=== PATIENT | female | born 1970 | race Caucasian/White ===

== ENCOUNTER → 2016-06-02 | Outpatient (CLI) | payer OTHER | END | disposition home or self-care (01) | LOC: CFH 10:57 | DX: Z12.31 Encounter for screening mammogram for malignant neoplasm of breast (principal) | CPT/HCPCS: 77063; G0202 ==

== ENCOUNTER → 2017-12-15 | Outpatient (CLI) | payer OTHER ==
[~2017-12-15] MED LIST: GLUCOSAMINE LIQUID PO; MULT-516 PO; VITA1TAB19 PO
[2017-12-15 15:48] LABS: MICROSCOPIC NOT IND
[2017-12-15 15:50] LABS: CULTURE INDICATED? NO
[2017-12-15 16:14] LABS: BASOPHILS # (AUTO) 0.03 x10^3/uL (0-0.1); BASOPHILS % (AUTO) 1 % (0-1); EOSINOPHILS # (AUTO) 0.14 x10^3/uL (0-0.4); EOSINOPHILS % (AUTO) 2 % (1-7); LYMPHOCYTES # (AUTO) 1.57 x10^3/uL (1-3.4); LYMPHOCYTES % (AUTO) 26 % (22-44); MD NO; MEAN CORPUSCULAR HEMOGLOBIN 33.3 pg (27.0-34.8); MEAN CORPUSCULAR HGB CONC 34.3 g/dL (32.4-35.8); MEAN CORPUSCULAR VOLUME 97.3 fL (80-100); MEAN PLATELET VOLUME 8.1 fL (7.4-10.4); MONOCYTES # (AUTO) 0.41 x10^3/uL (0.2-0.8); MONOCYTES % (AUTO) 7 % (2-9); NEUTROPHILS # (AUTO) 3.99 x10^3/uL (1.8-6.8); NEUTROPHILS % (AUTO) 65 % (42-75); PLATELET COUNT 319 x10^3/uL (130-400); RED BLOOD COUNT 3.48 x10^6/uL (3.82-5.3); RED CELL DISTRIBUTION WIDTH 12.1 % (9.6-15.2)
== END | disposition home or self-care (01) ==
LOC: STAR 14:56
PROVIDERS: ATTEND Obstetrics & Gynecology Maternal & Fetal Medicine
DX: Z01.818 Encounter for other preprocedural examination (principal); D25.9 Leiomyoma of uterus, unspecified; R10.2 Pelvic and perineal pain
CPT/HCPCS: 36415; 81003; 84703; 85025

== ENCOUNTER 2017-12-23 05:36 | Inpatient (IN) | payer OTHER ==
[~2017-12-23] VITALS: Ht 172.7 cm; Wt 57.4 kg
[2017-12-23] MEDS ORDERED: LACTATED RINGERS 1,000 ML IV SCH (06:03)
[2017-12-23 06:04] VITALS: BP 99/65
[2017-12-23] MEDS ORDERED: MIDAZOLAM 1 MG/ML, 2ML ONE (07:07)
[2017-12-23] MEDS ORDERED: PROPOFOL 10 MG/ML, 20ML ONE (07:08)
[2017-12-23] MEDS ORDERED: LIDOCAINE-MPF 2% ,5ML ONE (07:08)
[2017-12-23] MEDS ORDERED: FENTANYL PF 250 MCG/5ML ONE (07:08)
[2017-12-23] MEDS ORDERED: ONDANSETRON 2MG/ML, 2ML ONE ×2 (07:10)
[2017-12-23] MEDS ORDERED: DEXAMETHASONE 4 MG/ML, 1ML ONE ×2 (07:10)
[2017-12-23] MEDS ORDERED: WATER-INJECTION,STERILE 10 ML IV ONE (07:10)
[2017-12-23] MEDS ORDERED: CEFAZOLIN 1,000 MG ONE ×2 (07:10)
[2017-12-23] MEDS ORDERED: EPINEPHRINE 1 MG/ML, 1ML ONE (07:25)
[2017-12-23] MEDS ORDERED: cloniDINE/PF 100 MCG/ML, 10 ML ONE (07:27)
[2017-12-23] MEDS ORDERED: DEXMEDETOMIDINE 200 MCG/2 ML ONE (07:28)
[2017-12-23] MEDS ORDERED: SCOPOLAMINE PATCH, 1.5MG PATCH.TD72 TD ONE (07:30)
[2017-12-23] MEDS ORDERED: PHENYLEPHRINE 10 MG/ML ONE (07:30)
[2017-12-23] MEDS ORDERED: GABAPENTIN 300 MG CAPSULE PO ONE (07:30)
[2017-12-23] MEDS ORDERED: ACETAMINOPHEN 500 MG TABLET PO ONE (07:30)
[2017-12-23] MEDS ORDERED: ROCURONIUM 10 MG/ML,10ML ONE (07:38)
[2017-12-23] MEDS ORDERED: NEOSTIGMINE 1 MG/ML, 10ML ONE (08:46)
[2017-12-23] MEDS ORDERED: GLYCOPYRROLATE 0.4 MG/2 ML, 2ML ONE (08:46)
[2017-12-23] MEDS ORDERED: MEPERIDINE/PF 50 MG/ML ONE (09:03)
[2017-12-23] MEDS ORDERED: FENTANYL PF 100 MCG/2ML ONE (09:03)
[2017-12-23] MEDS ORDERED: OXYcodone 5 MG/5 ML ORAL.SOL UDC ONE (09:04)
[2017-12-23] MEDS: FENTANYL PF 100 MCG/2ML IV PRN ×4 (09:05→09:30)
[2017-12-23] MEDS: MEPERIDINE/PF 25MG/0.5ML IVPush PRN ×2 (09:20→09:45)
[2017-12-23] MEDS ORDERED: OXYcodone 5 MG/5 ML ORAL.SOL UDC PO PRN (09:30)
[2017-12-23] MEDS ORDERED: CEFAZOLIN PMX 1GM/50ML 50 ML IVPB SCH (09:30)
[2017-12-23] MEDS ORDERED: PROMETHAZINE 25 MG/ML, 1ML IV PRN (09:30)
[2017-12-23] MEDS ORDERED: HYDROmorphone 1 MG/ML, 1ML IV PRN (09:30)
[2017-12-23] MEDS ORDERED: HALOPERIDOL 5 MG/ML IV PRN (09:30)
[2017-12-23] MEDS ORDERED: HYDROmorphone 2 MG/ML, 1ML ONE (09:52)
[2017-12-23 13:35] VITALS: BP 96/53
[2017-12-23] MEDS: morphine SULFATE 10 MG/ML, 1ML IVPush PRN ×4 (15:06→23:50)
[2017-12-23 18:45] VITALS: BP 91/52
[2017-12-23] MEDS: LACTATED RINGERS 1,000 ML IV SCH (23:30)
[2017-12-24] MEDS ORDERED: CEFAZOLIN PMX 1GM/50ML 50 ML IVPB SCH
[2017-12-24 00:59] VITALS: BP 86/44
[2017-12-24 01:04] VITALS: BP 93/45
[2017-12-24] MEDS: OXYcodone 5 MG/5 ML ORAL.SOL UDC PO PRN ×5 (01:54→20:05)
[2017-12-24 04:29] VITALS: BP 94/47
[2017-12-24] MEDS: LACTATED RINGERS 1,000 ML IV SCH ×3 (06:36→22:52)
[2017-12-24 08:11] VITALS: BP 101/54
[2017-12-24 11:55] LABS: BASOPHILS # (AUTO) 0.09 x10^3/uL (0-0.1); BASOPHILS % (AUTO) 1 % (0-1); EOSINOPHILS # (AUTO) 0.03 x10^3/uL (0-0.4); EOSINOPHILS % (AUTO) 0 % (1-7); LYMPHOCYTES # (AUTO) 1.58 x10^3/uL (1-3.4); LYMPHOCYTES % (AUTO) 16 % (22-44); MD NO; MEAN CORPUSCULAR HEMOGLOBIN 32.4 pg (27.0-34.8); MEAN CORPUSCULAR HGB CONC 33.5 g/dL (32.4-35.8); MEAN CORPUSCULAR VOLUME 96.6 fL (80-100); MEAN PLATELET VOLUME 7.5 fL (7.4-10.4); MONOCYTES # (AUTO) 0.48 x10^3/uL (0.2-0.8); MONOCYTES % (AUTO) 5 % (2-9); NEUTROPHILS # (AUTO) 7.78 x10^3/uL (1.8-6.8); NEUTROPHILS % (AUTO) 78 % (42-75); PLATELET COUNT 215 x10^3/uL (130-400); RED BLOOD COUNT 3.16 x10^6/uL (3.82-5.3); RED CELL DISTRIBUTION WIDTH 12.5 % (9.6-15.2)
[2017-12-24 12:05] LABS: ALANINE AMINOTRANSFERASE 51 U/L (12-78); ALBUMIN 2.9 g/dL (3.4-5.0); ANION GAP 8 mmol/L (5-15); CALCIUM 8.4 mg/dL (8.5-10.1); CHLORIDE 105 mmol/L (98-107); CREATININE 0.51 mg/dL (0.55-1.02)
[2017-12-24 12:07] LABS: ALKALINE PHOSPHATASE 66 U/L (45-117); BILIRUBIN,TOTAL 0.9 mg/dL (0.2-1.0); TOTAL PROTEIN 6.2 g/dL (6.4-8.2)
[2017-12-24] MEDS: KETOROLAC 30 MG/1 ML IVPush SCH ×2 (12:32→18:02)
[2017-12-24 14:00] VITALS: BP 100/57
[2017-12-24] MEDS ORDERED: OMNIPAQUE 350 MG/ML, 100ML BOTTLE ONE (14:36)
[2017-12-24 20:00] VITALS: BP 106/64
[2017-12-24] MEDS: ONDANSETRON 2MG/ML, 2ML IVPush PRN (21:12)
[2017-12-24] MEDS: morphine SULFATE 10 MG/ML, 1ML IVPush PRN (21:22)
[2017-12-24] MEDS: OXYcodone/APAP 5/325MG TABLET PO PRN (23:16)
[2017-12-24] MEDS: DOCUSATE 100 MG CAPSULE PO SCH (23:18)
[2017-12-24] MEDS ORDERED: MORPHINE SULFATE 4 MG/ML, 1ML IVPush PRN (23:30)
[2017-12-25] MEDS: KETOROLAC 30 MG/1 ML IVPush SCH ×4 (00:28→17:49)
[2017-12-25 01:06] VITALS: BP 111/64
[2017-12-25] MEDS: OXYcodone/APAP 5/325MG TABLET PO PRN ×5 (03:14→20:53)
[2017-12-25] MEDS: ONDANSETRON 2MG/ML, 2ML IVPush PRN ×2 (06:22→23:28)
[2017-12-25] MEDS: LACTATED RINGERS 1,000 ML IV SCH ×3 (06:23→23:04)
[2017-12-25] MEDS: DOCUSATE 100 MG CAPSULE PO SCH ×2 (08:09→20:40)
[2017-12-25 09:33] VITALS: BP 102/65
[2017-12-25 15:14] VITALS: BP 110/65
[2017-12-25] MEDS ORDERED: GOLYTELY 4,000ML ORAL.SOL PO ONE (18:30)
[2017-12-25 19:24] VITALS: BP 106/66
[2017-12-26 00:10] VITALS: BP 110/70
[2017-12-26] MEDS: KETOROLAC 30 MG/1 ML IVPush SCH ×4 (00:34→18:30)
[2017-12-26] MEDS: ONDANSETRON 2MG/ML, 2ML IVPush PRN (05:31)
[2017-12-26 05:43] LABS: INTERNATIONAL NORMALIZED RATIO 1.2 (0.93-1.1); PROTHROMBIN TIME 12.6 Seconds (9.6-11.5)
[2017-12-26] MEDS: LACTATED RINGERS 1,000 ML IV SCH ×3 (06:32→23:00)
[2017-12-26 07:05] VITALS: BP 111/69
[2017-12-26] MEDS: DOCUSATE 100 MG CAPSULE PO SCH ×2 (09:00→21:00)
[2017-12-26] MEDS ORDERED: MAGNESIUM CITRATE 300ML ORAL SOL PO ONE (10:00)
[2017-12-26] MEDS ORDERED: MAGNESIUM HYDROXIDE 8%, 30ML UDC PO PRN (10:00)
[2017-12-26 13:43] VITALS: BP 122/75
[2017-12-26] MEDS ORDERED: SCOPOLAMINE PATCH, 1.5MG PATCH.TD72 TD ONE (13:46)
[2017-12-26] MEDS: SCOPOLAMINE PATCH, 1.5MG PATCH.TD72 TD SCH (13:50)
[2017-12-26] MEDS ORDERED: FENTANYL PF 250 MCG/5ML ONE (18:25)
[2017-12-26] MEDS ORDERED: MIDAZOLAM 1 MG/ML, 2ML ONE (18:25)
[2017-12-26] MEDS ORDERED: PROPOFOL 10 MG/ML, 20ML ONE (18:38)
[2017-12-26] MEDS ORDERED: CEFAZOLIN 1,000 MG ONE (18:38)
[2017-12-26] MEDS ORDERED: DEXAMETHASONE 4 MG/ML, 1ML ONE (18:38)
[2017-12-26] MEDS ORDERED: SUCCINYLCHOLINE 20 MG/ML, 10ML ONE (18:38)
[2017-12-26] MEDS ORDERED: ROCURONIUM 10 MG/ML,10ML ONE (18:38)
[2017-12-26] MEDS ORDERED: ONDANSETRON 2MG/ML, 2ML ONE (18:38)
[2017-12-26] MEDS ORDERED: ONDANSETRON ODT 8 MG PO PRN (19:30)
[2017-12-26] MEDS ORDERED: PROMETHAZINE 12.5 MG SUPP PR PRN (19:30)
[2017-12-26] MEDS ORDERED: hydrALAzine 20 MG/ML, 1ML IV PRN (19:30)
[2017-12-26] MEDS ORDERED: FENTANYL PF 100 MCG/2ML IV PRN (19:30)
[2017-12-26] MEDS ORDERED: ONDANSETRON 2MG/ML, 2ML IV PRN (19:30)
[2017-12-26] MEDS ORDERED: LABETALOL 5MG/ML, 20ML IV PRN (19:30)
[2017-12-26] MEDS ORDERED: HYDROmorphone 1 MG/ML, 1ML IV PRN (19:30)
[2017-12-26] MEDS ORDERED: OXYcodone 5 MG/5 ML ORAL.SOL UDC PO PRN (19:30)
[2017-12-26] MEDS ORDERED: BUPIVACAINE/PF-EPI 0.25% 1:200K INFIL ONE (19:35)
[2017-12-26] MEDS: METOCLOPRAMIDE 5 MG/ML, 2ML IVPush SCH (20:00)
[2017-12-26] MEDS ORDERED: BUPIVACAINE/PF-EPI 0.25% 1:200K ONE (22:58)
[2017-12-26] MEDS ORDERED: MEPERIDINE/PF 50 MG/ML ONE (22:59)
[2017-12-26] MEDS ORDERED: HYDROmorphone 2 MG/ML, 1ML ONE (22:59)
[2017-12-26] MEDS ORDERED: MEPERIDINE/PF 25MG/0.5ML IVPush PRN (23:30)
[2017-12-27] MEDS: KETOROLAC 30 MG/1 ML IVPush SCH ×4 (00:30→18:39)
[2017-12-27 00:31] VITALS: BP 123/77
[2017-12-27] MEDS: D5%-0.45NACL+KCL 20MEQ 1,000 ML IV SCH ×4 (01:19→23:35)
[2017-12-27] MEDS: METOCLOPRAMIDE 5 MG/ML, 2ML IVPush SCH ×4 (02:24→20:37)
[2017-12-27] MEDS: LACTATED RINGERS 1,000 ML IV SCH ×4 (02:26→21:31)
[2017-12-27 03:24] VITALS: BP 123/77
[2017-12-27 04:43] LABS: BASOPHILS # (AUTO) 0.01 x10^3/uL (0-0.1); BASOPHILS % (AUTO) 0 % (0-1); EOSINOPHILS % (AUTO) 0 % (1-7); LYMPHOCYTES # (AUTO) 0.17 x10^3/uL (1-3.4); LYMPHOCYTES % (AUTO) 4 % (22-44); MD NO; MEAN CORPUSCULAR HGB CONC 34.4 g/dL (32.4-35.8); MEAN CORPUSCULAR VOLUME 96.1 fL (80-100); MONOCYTES % (AUTO) 2 % (2-9); NEUTROPHILS # (AUTO) 3.94 x10^3/uL (1.8-6.8); NEUTROPHILS % (AUTO) 93 % (42-75); PLATELET COUNT 228 x10^3/uL (130-400); RED BLOOD COUNT 2.58 x10^6/uL (3.82-5.3); RED CELL DISTRIBUTION WIDTH 12.9 % (9.6-15.2)
[2017-12-27 04:52] LABS: ANION GAP 6 mmol/L (5-15); CALCIUM 7.2 mg/dL (8.5-10.1); CHLORIDE 101 mmol/L (98-107)
[2017-12-27 04:53] LABS: CREATININE 0.48 mg/dL (0.55-1.02)
[2017-12-27 07:16] VITALS: BP 121/73
[2017-12-27] MEDS: DOCUSATE 100 MG CAPSULE PO SCH ×2 (09:00→20:37)
[2017-12-27 13:08] VITALS: BP 101/60
[2017-12-27] MEDS ORDERED: SODIUM CHLORIDE 0.9%, 500ML IVBOLUS ONE (13:30)
[2017-12-27 15:05] LABS: CULTURE INDICATED? YES; MICROSCOPIC INDICATED
[2017-12-27] MEDS ORDERED: SODIUM CHLORIDE 0.9% 1,000ML IVBOLUS ONE (19:00)
[2017-12-27 19:13] VITALS: BP 104/65
[2017-12-28] VITALS (11 sets, daily range): BP systolic 97–118; BP diastolic 54–69
[2017-12-28] MEDS: KETOROLAC 30 MG/1 ML IVPush SCH ×4 (00:13→18:02)
[2017-12-28] MEDS: METOCLOPRAMIDE 5 MG/ML, 2ML IVPush SCH ×4 (02:04→21:04)
[2017-12-28 05:46] LABS: BASOPHILS % (AUTO) 0 % (0-1); EOSINOPHILS # (AUTO) 0.06 x10^3/uL (0-0.4); EOSINOPHILS % (AUTO) 1 % (1-7); LYMPHOCYTES # (AUTO) 0.48 x10^3/uL (1-3.4); LYMPHOCYTES % (AUTO) 11 % (22-44); MD NO; MEAN CORPUSCULAR HEMOGLOBIN 31.9 pg (27.0-34.8); MEAN CORPUSCULAR HGB CONC 33.1 g/dL (32.4-35.8); MEAN CORPUSCULAR VOLUME 96.2 fL (80-100); MEAN PLATELET VOLUME 7.1 fL (7.4-10.4); MONOCYTES % (AUTO) 5 % (2-9); NEUTROPHILS # (AUTO) 3.58 x10^3/uL (1.8-6.8); NEUTROPHILS % (AUTO) 83 % (42-75); PLATELET COUNT 240 x10^3/uL (130-400); RED BLOOD COUNT 2.12 x10^6/uL (3.82-5.3); RED CELL DISTRIBUTION WIDTH 13.3 % (9.6-15.2)
[2017-12-28 05:50] LABS: ALBUMIN 1.5 g/dL (3.4-5.0); ANION GAP 5 mmol/L (5-15); CALCIUM 7.1 mg/dL (8.5-10.1); CHLORIDE 105 mmol/L (98-107)
[2017-12-28 05:56] LABS: ALANINE AMINOTRANSFERASE 42 U/L (12-78); ALKALINE PHOSPHATASE 59 U/L (45-117); BILIRUBIN,TOTAL 0.6 mg/dL (0.2-1.0); CREATININE 0.48 mg/dL (0.55-1.02); TOTAL PROTEIN 4.9 g/dL (6.4-8.2)
[2017-12-28] MEDS: DOCUSATE 100 MG CAPSULE PO SCH ×2 (07:36→19:23)
[2017-12-28] MEDS: D5%-0.45NACL+KCL 20MEQ 1,000 ML IV SCH ×3 (07:38→23:39)
[2017-12-28] MEDS: LACTATED RINGERS 1,000 ML IV SCH ×2 (13:11→20:35)
[2017-12-28] MEDS: ONDANSETRON 2MG/ML, 2ML IVPush PRN (15:46)
[2017-12-29] MEDS: KETOROLAC 30 MG/1 ML IVPush SCH ×2 (01:11→06:00)
[2017-12-29] MEDS: METOCLOPRAMIDE 5 MG/ML, 2ML IVPush SCH ×2 (01:51→07:47)
[2017-12-29 05:19] LABS: BASOPHILS # (AUTO) 0.01 x10^3/uL (0-0.1); BASOPHILS % (AUTO) 0 % (0-1); EOSINOPHILS # (AUTO) 0.14 x10^3/uL (0-0.4); EOSINOPHILS % (AUTO) 4 % (1-7); LYMPHOCYTES # (AUTO) 0.66 x10^3/uL (1-3.4); LYMPHOCYTES % (AUTO) 18 % (22-44); MD NO; MEAN CORPUSCULAR HEMOGLOBIN 31.6 pg (27.0-34.8); MEAN CORPUSCULAR HGB CONC 34.6 g/dL (32.4-35.8); MEAN CORPUSCULAR VOLUME 91.5 fL (80-100); MEAN PLATELET VOLUME 6.8 fL (7.4-10.4); MONOCYTES # (AUTO) 0.38 x10^3/uL (0.2-0.8); MONOCYTES % (AUTO) 11 % (2-9); NEUTROPHILS % (AUTO) 67 % (42-75); PLATELET COUNT 237 x10^3/uL (130-400); RED BLOOD COUNT 2.61 x10^6/uL (3.82-5.3); RED CELL DISTRIBUTION WIDTH 17.6 % (9.6-15.2)
[2017-12-29] MEDS: LACTATED RINGERS 1,000 ML IV SCH ×3 (06:00→22:00)
[2017-12-29 07:12] VITALS: BP 105/57
[2017-12-29] MEDS: D5%-0.45NACL+KCL 20MEQ 1,000 ML IV SCH ×2 (07:45→16:51)
[2017-12-29] MEDS: DOCUSATE 100 MG CAPSULE PO SCH (07:48)
[2017-12-29 12:22] VITALS: BP 117/74
[2017-12-29] MEDS: KETOROLAC 30 MG/1 ML IVPush PRN ×2 (12:35→18:44)
[2017-12-29] MEDS: SCOPOLAMINE PATCH, 1.5MG PATCH.TD72 TD SCH (14:33)
[2017-12-29 18:52] VITALS: BP 112/73
[2017-12-30] MEDS: KETOROLAC 30 MG/1 ML IVPush PRN ×4 (00:32→22:54)
[2017-12-30] MEDS: D5%-0.45NACL+KCL 20MEQ 1,000 ML IV SCH ×3 (00:32→17:21)
[2017-12-30 00:42] VITALS: BP 122/64
[2017-12-30] MEDS: LACTATED RINGERS 1,000 ML IV SCH ×4 (05:21→23:16)
[2017-12-30 05:57] LABS: BASOPHILS # (AUTO) 0.01 x10^3/uL (0-0.1); BASOPHILS % (AUTO) 0 % (0-1); EOSINOPHILS # (AUTO) 0.15 x10^3/uL (0-0.4); EOSINOPHILS % (AUTO) 4 % (1-7); LYMPHOCYTES # (AUTO) 0.71 x10^3/uL (1-3.4); LYMPHOCYTES % (AUTO) 18 % (22-44); MD NO; MEAN CORPUSCULAR HEMOGLOBIN 30.6 pg (27.0-34.8); MEAN CORPUSCULAR HGB CONC 33.6 g/dL (32.4-35.8); MEAN PLATELET VOLUME 6.9 fL (7.4-10.4); MONOCYTES # (AUTO) 0.36 x10^3/uL (0.2-0.8); MONOCYTES % (AUTO) 9 % (2-9); NEUTROPHILS # (AUTO) 2.74 x10^3/uL (1.8-6.8); NEUTROPHILS % (AUTO) 69 % (42-75); PLATELET COUNT 248 x10^3/uL (130-400); RED BLOOD COUNT 2.69 x10^6/uL (3.82-5.3); RED CELL DISTRIBUTION WIDTH 16.8 % (9.6-15.2)
[2017-12-30 06:01] LABS: ANION GAP 2 mmol/L (5-15); CALCIUM 7.7 mg/dL (8.5-10.1); CHLORIDE 106 mmol/L (98-107); CREATININE 0.41 mg/dL (0.55-1.02)
[2017-12-30 07:14] VITALS: BP 120/74
[2017-12-30 13:30] VITALS: BP 119/81
[2017-12-30 19:50] VITALS: BP 122/74
[2017-12-31 00:37] VITALS: BP 126/89
[2017-12-31] MEDS: D5%-0.45NACL+KCL 20MEQ 1,000 ML IV SCH ×3 (00:47→16:56)
[2017-12-31 07:48] VITALS: BP 125/72
[2017-12-31] MEDS: KETOROLAC 30 MG/1 ML IVPush PRN ×2 (10:37→21:15)
[2017-12-31] MEDS: ONDANSETRON 2MG/ML, 2ML IVPush PRN (14:41)
[2017-12-31 15:32] VITALS: BP_SYST 106; BP_SYST 110; BP_DIAS 67
[2017-12-31 19:55] VITALS: BP 122/78
[2017-12-31] MEDS: LACTATED RINGERS 1,000 ML IV SCH (20:49)
[2017-12-31] MEDS: POLYTRIM OPHTH 10ML RIGHTEYE SCH (20:49)
[2018-01-01 01:19] VITALS: BP 119/74
[2018-01-01] MEDS: POLYTRIM OPHTH 10ML RIGHTEYE SCH ×4 (02:56→21:16)
[2018-01-01] MEDS: D5%-0.45NACL+KCL 20MEQ 1,000 ML IV SCH ×2 (04:38→12:28)
[2018-01-01 06:06] LABS: ALBUMIN 1.6 g/dL (3.4-5.0); ANION GAP 6 mmol/L (5-15); CALCIUM 7.5 mg/dL (8.5-10.1); CHLORIDE 106 mmol/L (98-107)
[2018-01-01 06:09] LABS: ALANINE AMINOTRANSFERASE 42 U/L (12-78); ALKALINE PHOSPHATASE 133 U/L (45-117); CREATININE 0.36 mg/dL (0.55-1.02); MEAN CORPUSCULAR HEMOGLOBIN 30.9 pg (27.0-34.8); MEAN CORPUSCULAR HGB CONC 34.1 g/dL (32.4-35.8); MEAN CORPUSCULAR VOLUME 90.7 fL (80-100); MEAN PLATELET VOLUME 7.2 fL (7.4-10.4); PLATELET COUNT 299 x10^3/uL (130-400); RED BLOOD COUNT 2.51 x10^6/uL (3.82-5.3); RED CELL DISTRIBUTION WIDTH 16.6 % (9.6-15.2)
[2018-01-01 06:27] LABS: BASOPHILS # (AUTO) 0.03 x10^3/uL (0-0.1); BASOPHILS % (AUTO) 0 % (0-1); EOSINOPHILS # (AUTO) 0.07 x10^3/uL (0-0.4); EOSINOPHILS % (AUTO) 1 % (1-7); LYMPHOCYTES # (AUTO) 0.71 x10^3/uL (1-3.4); LYMPHOCYTES % (AUTO) 10 % (22-44); MD SCAN; MONOCYTES # (AUTO) 0.56 x10^3/uL (0.2-0.8); MONOCYTES % (AUTO) 8 % (2-9); NEUTROPHILS # (AUTO) 5.64 x10^3/uL (1.8-6.8); NEUTROPHILS % (AUTO) 81 % (42-75)
[2018-01-01 07:12] VITALS: BP 118/68
[2018-01-01] MEDS: OXYcodone 5 MG/5 ML ORAL.SOL UDC PO PRN ×2 (12:12→21:36)
[2018-01-01 12:16] VITALS: BP 103/64
[2018-01-01] MEDS: ONDANSETRON 2MG/ML, 2ML IVPush PRN ×2 (12:47→23:36)
[2018-01-01] MEDS: SCOPOLAMINE PATCH, 1.5MG PATCH.TD72 TD SCH (13:57)
[2018-01-01] MEDS ORDERED: PVN PER PHARMACY MC PRN (16:00)
[2018-01-01] MEDS ORDERED: D5%-0.45NACL+KCL 20MEQ 1,000 ML IV SCH (16:30)
[2018-01-01] MEDS ORDERED: D5%-0.45% NACL 1,000 ML IV SCH (16:31)
[2018-01-01] MEDS ORDERED: [UNRECOGNIZED DRUG - OTHER] IV SCH (17:00)
[2018-01-01] MEDS ORDERED: SMOF TPN IV SCH (17:00)
[2018-01-01] MEDS ORDERED: FAT EMUL IV SCH (17:00)
[2018-01-01] MEDS ORDERED: DEXTROSE 70% IV SCH (17:00)
[2018-01-01] MEDS ORDERED: DEXTROSE 10% 500 ML IV PRN (17:00)
[2018-01-01] MEDS ORDERED: DEXTROSE 50%, 50ML SYRINGE IVPush PRN (17:00)
[2018-01-01] MEDS ORDERED: AMINO ACID 10% IV SCH (17:00)
[2018-01-01 19:02] VITALS: BP 119/74
[2018-01-01] MEDS: FILTER, DISP 1.2 MICRON FOR TPN/PVN IV PRN (20:42)
[2018-01-01] MEDS: LACTATED RINGERS 1,000 ML IV SCH (21:20)
[2018-01-01] MEDS: INSULIN REGULAR LOW DOSE Q6H X 48HRS SQ-INSULIN SCH (21:20)
[2018-01-02 01:17] VITALS: BP 109/68
[2018-01-02] MEDS: INSULIN REGULAR LOW DOSE Q6H X 48HRS SQ-INSULIN SCH ×4 (02:58→22:07)
[2018-01-02] MEDS: POLYTRIM OPHTH 10ML RIGHTEYE SCH ×4 (02:58→20:00)
[2018-01-02 05:41] LABS: MEAN CORPUSCULAR HEMOGLOBIN 30.6 pg (27.0-34.8); MEAN CORPUSCULAR VOLUME 89.8 fL (80-100); MEAN PLATELET VOLUME 7.4 fL (7.4-10.4); PLATELET COUNT 313 x10^3/uL (130-400); RED BLOOD COUNT 2.52 x10^6/uL (3.82-5.3); RED CELL DISTRIBUTION WIDTH 16.5 % (9.6-15.2)
[2018-01-02 05:49] LABS: CHLORIDE 104 mmol/L (98-107)
[2018-01-02 06:03] LABS: ALANINE AMINOTRANSFERASE 40 U/L (12-78); ALBUMIN 1.6 g/dL (3.4-5.0); ALKALINE PHOSPHATASE 115 U/L (45-117); ANION GAP 7 mmol/L (5-15); BILIRUBIN,TOTAL 0.9 mg/dL (0.2-1.0); CALCIUM 7.5 mg/dL (8.5-10.1); CREATININE 0.34 mg/dL (0.55-1.02); PREALBUMIN 3.7 mg/dL (20.0-40.0); TRIGLYCERIDES 115 mg/dL (50-200)
[2018-01-02 06:08] LABS: MD YES
[2018-01-02 06:11] LABS: ANISOCYTOSIS 1+; BAND#(MANUAL) 1.14 x10^3/uL; BANDS%(MANUAL) 15 % (0-7); EOS#(MANUAL) 0.08 x10^3/uL (0.0-0.4); EOS% (MANUAL) 1 % (1-7); LYMPH#(MANUAL) 1.06 x10^3/uL (1-3.4); LYMPHS% (MANUAL) 14 % (22-44); MONOS#(MANUAL) 0.23 x10^3/uL (0.3-2.7); MONOS% (MANUAL) 3 % (2-9); POLYCHROMASIA 1+; REACTIVE LYMPHS # (MANUAL) 0.15 x10^3/uL (0-0); REACTIVE LYMPHS % (MANUAL) 2 % (0-0); SEG#(MANUAL) 4.94 x10^3/uL (1.8-6.8); SEGS% (MANUAL) 65 % (42-75)
[2018-01-02 06:12] LABS: <PLATELET ESTIMATE> ADEQUATE; <PLT MORPHOLOGY> NORMAL PLT MORPH; TOXIC GRAN 1+
[2018-01-02 06:50] VITALS: BP 107/69
[2018-01-02] MEDS: OXYcodone 5 MG/5 ML ORAL.SOL UDC PO PRN ×2 (09:30→22:14)
[2018-01-02] MEDS ORDERED: TPN PER PHARMACY MC PRN (10:41)
[2018-01-02 12:07] VITALS: BP 110/59
[2018-01-02] MEDS: D5%-0.45% NACL 1,000 ML IV SCH (15:14)
[2018-01-02] MEDS ORDERED: SMOF TPN IV SCH (17:00)
[2018-01-02] MEDS ORDERED: AMINO ACID 10% IV SCH (17:00)
[2018-01-02] MEDS ORDERED: DEXTROSE 70% IV SCH (17:00)
[2018-01-02] MEDS ORDERED: [UNRECOGNIZED DRUG - OTHER] IV SCH (17:00)
[2018-01-02] MEDS ORDERED: FAT EMUL IV SCH (17:00)
[2018-01-02] MEDS: ONDANSETRON 2MG/ML, 2ML IVPush PRN (18:05)
[2018-01-02 19:41] VITALS: BP 100/63
[2018-01-02] MEDS: FILTER, DISP 1.2 MICRON FOR TPN/PVN IV PRN (19:58)
[2018-01-02] MEDS: LACTATED RINGERS 1,000 ML IV SCH (21:41)
[2018-01-03 01:32] VITALS: BP 111/67
[2018-01-03] MEDS: POLYTRIM OPHTH 10ML RIGHTEYE SCH ×4 (02:51→19:58)
[2018-01-03] MEDS: INSULIN REGULAR LOW DOSE Q6H X 48HRS SQ-INSULIN SCH ×3 (02:59→15:00)
[2018-01-03] MEDS: LACTATED RINGERS 1,000 ML IV SCH ×3 (05:11→16:25)
[2018-01-03] MEDS: OXYcodone 5 MG/5 ML ORAL.SOL UDC PO PRN (05:11)
[2018-01-03 05:25] LABS: ALANINE AMINOTRANSFERASE 52 U/L (12-78); ALBUMIN 1.6 g/dL (3.4-5.0); ANION GAP 10 mmol/L (5-15); CALCIUM 7.4 mg/dL (8.5-10.1); CHLORIDE 104 mmol/L (98-107); CREATININE 0.34 mg/dL (0.55-1.02)
[2018-01-03 05:27] LABS: ALKALINE PHOSPHATASE 137 U/L (45-117); BILIRUBIN,TOTAL 0.7 mg/dL (0.2-1.0); TOTAL PROTEIN 5.3 g/dL (6.4-8.2)
[2018-01-03 07:17] VITALS: BP 97/59
[2018-01-03 09:08] LABS: MEAN CORPUSCULAR HEMOGLOBIN 30.3 pg (27.0-34.8); MEAN CORPUSCULAR HGB CONC 33.7 g/dL (32.4-35.8); MEAN PLATELET VOLUME 7.2 fL (7.4-10.4); PLATELET COUNT 437 x10^3/uL (130-400); RED BLOOD COUNT 2.83 x10^6/uL (3.82-5.3); RED CELL DISTRIBUTION WIDTH 16.5 % (9.6-15.2)
[2018-01-03 10:30] LABS: MD YES
[2018-01-03 10:32] LABS: EOS#(MANUAL) 0.23 x10^3/uL (0.0-0.4); EOS% (MANUAL) 2 % (1-7); LYMPHS% (MANUAL) 15 % (22-44); MONOS#(MANUAL) 0.45 x10^3/uL (0.3-2.7); MONOS% (MANUAL) 4 % (2-9)
[2018-01-03 10:33] LABS: BAND#(MANUAL) 0.68 x10^3/uL; BANDS%(MANUAL) 6 % (0-7); SEG#(MANUAL) 8.25 x10^3/uL (1.8-6.8); SEGS% (MANUAL) 73 % (42-75)
[2018-01-03 10:34] LABS: <PLATELET ESTIMATE> INCREASED; <PLT MORPHOLOGY> NORMAL PLT MORPH; ANISOCYTOSIS 1+; POLYCHROMASIA 1+
[2018-01-03] MEDS: KETOROLAC 30 MG/1 ML IVPush SCH ×3 (10:55→22:00)
[2018-01-03] MEDS: ONDANSETRON 2MG/ML, 2ML IVPush PRN (11:23)
[2018-01-03 12:44] VITALS: BP 103/65
[2018-01-03] MEDS ORDERED: SMOF TPN IV SCH (17:00)
[2018-01-03] MEDS ORDERED: AMINO ACID 10% IV SCH (17:00)
[2018-01-03] MEDS ORDERED: DEXTROSE 70% IV SCH (17:00)
[2018-01-03] MEDS ORDERED: [UNRECOGNIZED DRUG - OTHER] IV SCH (17:00)
[2018-01-03] MEDS ORDERED: FAT EMUL IV SCH (17:00)
[2018-01-03 19:59] VITALS: BP 104/63
[2018-01-03] MEDS: D5%-0.45% NACL 1,000 ML IV SCH (20:00)
[2018-01-03] MEDS: FILTER, DISP 1.2 MICRON FOR TPN/PVN IV PRN (20:01)
[2018-01-03] MEDS: INSULIN REGULAR LOW DOSE QDAY SQ-INSULIN SCH (20:08)
[2018-01-04] MEDS: POLYTRIM OPHTH 10ML RIGHTEYE SCH ×4 (03:00→21:46)
[2018-01-04 04:00] VITALS: BP 110/63
[2018-01-04] MEDS: KETOROLAC 30 MG/1 ML IVPush SCH ×4 (04:08→21:59)
[2018-01-04] MEDS: LACTATED RINGERS 1,000 ML IV SCH (04:12)
[2018-01-04 07:31] VITALS: BP 104/63
[2018-01-04] MEDS: ONDANSETRON 2MG/ML, 2ML IVPush PRN (12:08)
[2018-01-04] MEDS: SCOPOLAMINE PATCH, 1.5MG PATCH.TD72 TD SCH (15:20)
[2018-01-04] MEDS: OXYcodone/APAP 5/325MG TABLET PO PRN ×2 (15:29→20:40)
[2018-01-04 15:56] VITALS: BP 108/64
[2018-01-04] MEDS ORDERED: SMOF TPN IV SCH (17:00)
[2018-01-04] MEDS ORDERED: AMINO ACID 10% IV SCH (17:00)
[2018-01-04] MEDS ORDERED: FAT EMUL IV SCH (17:00)
[2018-01-04] MEDS ORDERED: [UNRECOGNIZED DRUG - OTHER] IV SCH (17:00)
[2018-01-04] MEDS ORDERED: FILTER, DISP 1.2 MICRON FOR TPN/PVN IV PRN (17:00)
[2018-01-04] MEDS ORDERED: DEXTROSE 70% IV SCH (17:00)
[2018-01-04 20:30] VITALS: BP 112/65
[2018-01-04] MEDS: INSULIN REGULAR LOW DOSE QDAY SQ-INSULIN SCH (21:00)
[2018-01-05 01:04] VITALS: BP 112/70
[2018-01-05] MEDS: OXYcodone/APAP 5/325MG TABLET PO PRN ×4 (03:18→20:11)
[2018-01-05] MEDS: KETOROLAC 30 MG/1 ML IVPush SCH ×4 (03:19→22:00)
[2018-01-05] MEDS: POLYTRIM OPHTH 10ML RIGHTEYE SCH ×4 (03:19→20:11)
[2018-01-05 03:49] LABS: ANION GAP 8 mmol/L (5-15); CHLORIDE 107 mmol/L (98-107); CREATININE 0.34 mg/dL (0.55-1.02)
[2018-01-05 07:45] VITALS: BP 110/62
[2018-01-05 13:25] VITALS: BP 97/58
[2018-01-05] MEDS ORDERED: DEXTROSE 70% IV SCH (17:00)
[2018-01-05] MEDS ORDERED: FAT EMUL IV SCH (17:00)
[2018-01-05] MEDS ORDERED: AMINO ACID 10% IV SCH (17:00)
[2018-01-05] MEDS ORDERED: SMOF TPN IV SCH (17:00)
[2018-01-05] MEDS ORDERED: FILTER, DISP 1.2 MICRON FOR TPN/PVN IV PRN (17:00)
[2018-01-05] MEDS ORDERED: [UNRECOGNIZED DRUG - OTHER] IV SCH (17:00)
[2018-01-05] MEDS: D5%-0.45% NACL 1,000 ML IV SCH (17:33)
[2018-01-05 20:19] VITALS: BP 106/65
[2018-01-06] MEDS: OXYcodone/APAP 5/325MG TABLET PO PRN (03:01)
[2018-01-06] MEDS: POLYTRIM OPHTH 10ML RIGHTEYE SCH ×4 (03:01→21:48)
[2018-01-06 03:04] VITALS: BP 99/62
[2018-01-06] MEDS: KETOROLAC 30 MG/1 ML IVPush SCH ×4 (04:00→21:43)
[2018-01-06 04:03] LABS: MEAN CORPUSCULAR HGB CONC 34.3 g/dL (32.4-35.8); MEAN CORPUSCULAR VOLUME 90.3 fL (80-100); MEAN PLATELET VOLUME 8.3 fL (7.4-10.4); PLATELET COUNT 471 x10^3/uL (130-400); RED BLOOD COUNT 2.49 x10^6/uL (3.82-5.3); RED CELL DISTRIBUTION WIDTH 17.2 % (9.6-15.2)
[2018-01-06 04:06] LABS: MD YES
[2018-01-06 04:15] LABS: ALANINE AMINOTRANSFERASE 94 U/L (12-78); ALBUMIN 1.9 g/dL (3.4-5.0); ANION GAP 8 mmol/L (5-15); CHLORIDE 107 mmol/L (98-107); CREATININE 0.37 mg/dL (0.55-1.02)
[2018-01-06 04:17] LABS: ALKALINE PHOSPHATASE 219 U/L (45-117); BILIRUBIN,TOTAL 0.4 mg/dL (0.2-1.0); TOTAL PROTEIN 5.8 g/dL (6.4-8.2)
[2018-01-06 04:20] LABS: <PLATELET ESTIMATE> INCREASED; <PLT MORPHOLOGY> NORMAL PLT MORPH; ANISOCYTOSIS 1+; BANDS%(MANUAL) 3 % (0-7); EOS#(MANUAL) 0.34 x10^3/uL (0.0-0.4); EOS% (MANUAL) 5 % (1-7); LYMPH#(MANUAL) 1.07 x10^3/uL (1-3.4); LYMPHS% (MANUAL) 16 % (22-44); MONOS#(MANUAL) 0.27 x10^3/uL (0.3-2.7); MONOS% (MANUAL) 4 % (2-9); POLYCHROMASIA 1+; SEG#(MANUAL) 4.82 x10^3/uL (1.8-6.8); SEGS% (MANUAL) 72 % (42-75)
[2018-01-06 08:25] VITALS: BP 103/63
[2018-01-06] MEDS: INSULIN REGULAR LOW DOSE QDAY SQ-INSULIN SCH (09:00)
[2018-01-06] MEDS: OXYcodone IR 5MG TABLET PO PRN ×2 (10:20→16:26)
[2018-01-06 12:18] VITALS: BP 104/72
[2018-01-06] MEDS: ONDANSETRON 2MG/ML, 2ML IVPush PRN (16:59)
[2018-01-06] MEDS: FILTER, DISP 1.2 MICRON FOR TPN/PVN IV PRN (17:00)
[2018-01-06] MEDS ORDERED: [UNRECOGNIZED DRUG - OTHER] IV SCH (17:00)
[2018-01-06] MEDS ORDERED: FAT EMUL IV SCH (17:00)
[2018-01-06] MEDS ORDERED: SMOF TPN IV SCH (17:00)
[2018-01-06] MEDS ORDERED: AMINO ACID 10% IV SCH (17:00)
[2018-01-06] MEDS ORDERED: DEXTROSE 70% IV SCH (17:00)
[2018-01-06] MEDS: D5%-0.45% NACL 1,000 ML IV SCH (17:01)
[2018-01-06 21:47] VITALS: BP 99/61
[2018-01-07] MEDS: KETOROLAC 30 MG/1 ML IVPush SCH ×4 (04:00→22:00)
[2018-01-07 04:18] VITALS: BP 97/60
[2018-01-07] MEDS: OXYcodone IR 5MG TABLET PO PRN ×4 (04:29→22:31)
[2018-01-07] MEDS: POLYTRIM OPHTH 10ML RIGHTEYE SCH ×4 (04:29→20:07)
[2018-01-07 04:33] LABS: BASOPHILS # (AUTO) 0.06 x10^3/uL (0-0.1); BASOPHILS % (AUTO) 1 % (0-1); EOSINOPHILS # (AUTO) 0.17 x10^3/uL (0-0.4); EOSINOPHILS % (AUTO) 2 % (1-7); LYMPHOCYTES # (AUTO) 1.03 x10^3/uL (1-3.4); LYMPHOCYTES % (AUTO) 15 % (22-44); MD NO; MEAN CORPUSCULAR HEMOGLOBIN 30.6 pg (27.0-34.8); MONOCYTES # (AUTO) 0.49 x10^3/uL (0.2-0.8); MONOCYTES % (AUTO) 7 % (2-9); NEUTROPHILS # (AUTO) 5.37 x10^3/uL (1.8-6.8); NEUTROPHILS % (AUTO) 75 % (42-75); PLATELET COUNT 511 x10^3/uL (130-400); RED BLOOD COUNT 2.71 x10^6/uL (3.82-5.3); RED CELL DISTRIBUTION WIDTH 17.1 % (9.6-15.2)
[2018-01-07 04:43] LABS: ALBUMIN 2.1 g/dL (3.4-5.0); ANION GAP 6 mmol/L (5-15); CALCIUM 8.2 mg/dL (8.5-10.1); CHLORIDE 109 mmol/L (98-107)
[2018-01-07 04:46] LABS: ALANINE AMINOTRANSFERASE 95 U/L (12-78); ALKALINE PHOSPHATASE 202 U/L (45-117); BILIRUBIN,TOTAL 0.4 mg/dL (0.2-1.0); CREATININE 0.37 mg/dL (0.55-1.02); TOTAL PROTEIN 6.3 g/dL (6.4-8.2)
[2018-01-07 07:14] VITALS: BP 95/60
[2018-01-07] MEDS: INSULIN REGULAR LOW DOSE QDAY SQ-INSULIN SCH (09:00)
[2018-01-07] MEDS: ONDANSETRON 2MG/ML, 2ML IVPush PRN ×2 (12:14→22:37)
[2018-01-07 14:00] VITALS: BP 94/54
[2018-01-07] MEDS: SCOPOLAMINE PATCH, 1.5MG PATCH.TD72 TD SCH (14:18)
[2018-01-07] MEDS ORDERED: SMOF TPN IV SCH (17:00)
[2018-01-07] MEDS ORDERED: [UNRECOGNIZED DRUG - OTHER] IV SCH (17:00)
[2018-01-07] MEDS ORDERED: DEXTROSE 70% IV SCH (17:00)
[2018-01-07] MEDS ORDERED: FAT EMUL IV SCH (17:00)
[2018-01-07] MEDS ORDERED: AMINO ACID 10% IV SCH (17:00)
[2018-01-07] MEDS: FILTER, DISP 1.2 MICRON FOR TPN/PVN IV PRN (17:03)
[2018-01-07] MEDS: D5%-0.45% NACL 1,000 ML IV SCH (17:03)
[2018-01-07 20:31] VITALS: BP 93/58
[2018-01-08 02:37] VITALS: BP 99/62
[2018-01-08] MEDS: POLYTRIM OPHTH 10ML RIGHTEYE SCH ×4 (03:12→22:01)
[2018-01-08] MEDS: OXYcodone IR 5MG TABLET PO PRN ×3 (03:14→19:20)
[2018-01-08] MEDS: KETOROLAC 30 MG/1 ML IVPush SCH (04:00)
[2018-01-08] MEDS: ONDANSETRON 2MG/ML, 2ML IVPush PRN ×3 (06:12→19:20)
[2018-01-08 06:29] LABS: ANION GAP 9 mmol/L (5-15); CALCIUM 8.4 mg/dL (8.5-10.1); CHLORIDE 108 mmol/L (98-107)
[2018-01-08 06:30] LABS: CREATININE 0.43 mg/dL (0.55-1.02)
[2018-01-08] MEDS: INSULIN REGULAR LOW DOSE QDAY SQ-INSULIN SCH (09:00)
[2018-01-08 09:46] VITALS: BP 94/57
[2018-01-08 15:57] VITALS: BP 95/59
[2018-01-08] MEDS ORDERED: SMOF TPN IV SCH (17:00)
[2018-01-08] MEDS ORDERED: DEXTROSE 70% IV SCH (17:00)
[2018-01-08] MEDS ORDERED: FAT EMUL IV SCH (17:00)
[2018-01-08] MEDS ORDERED: [UNRECOGNIZED DRUG - OTHER] IV SCH (17:00)
[2018-01-08] MEDS ORDERED: AMINO ACID 10% IV SCH (17:00)
[2018-01-08 20:09] VITALS: BP 94/60
[2018-01-09 05:10] VITALS: BP 98/59
[2018-01-09] MEDS: OXYcodone IR 5MG TABLET PO PRN ×2 (05:21→12:34)
[2018-01-09] MEDS: POLYTRIM OPHTH 10ML RIGHTEYE SCH ×3 (05:22→15:04)
[2018-01-09] MEDS: ONDANSETRON 2MG/ML, 2ML IVPush PRN ×2 (05:28→12:23)
[2018-01-09 06:06] LABS: ALBUMIN 2.4 g/dL (3.4-5.0); ANION GAP 8 mmol/L (5-15); CALCIUM 8.4 mg/dL (8.5-10.1); CHLORIDE 106 mmol/L (98-107)
[2018-01-09 06:08] LABS: CREATININE 0.49 mg/dL (0.55-1.02)
[2018-01-09 06:09] LABS: ALANINE AMINOTRANSFERASE 135 U/L (12-78)
[2018-01-09 06:10] LABS: ALKALINE PHOSPHATASE 194 U/L (45-117); BILIRUBIN,TOTAL 0.3 mg/dL (0.2-1.0); PREALBUMIN 20.4 mg/dL (20.0-40.0); TOTAL PROTEIN 6.8 g/dL (6.4-8.2); TRIGLYCERIDES 196 mg/dL (50-200)
[2018-01-09 07:02] VITALS: BP 103/65
[2018-01-09] MEDS: INSULIN REGULAR LOW DOSE QDAY SQ-INSULIN SCH (08:24)
[2018-01-09] MEDS ORDERED: FAMOTIDINE 20 MG TABLET PO SCH (11:02)
[2018-01-09 14:10] VITALS: BP 108/72
== END 2018-01-09 18:04 | disposition home or self-care (01) | DRG 982 ==
LOC: ORIP 05:36 → 4NOR 10:35 → 3NW 01-03 11:28
PROVIDERS: ADMIT Obstetrics & Gynecology Maternal & Fetal Medicine; ATTEND Obstetrics & Gynecology Maternal & Fetal Medicine
PROC: 0UB00ZX Excision of Right Ovary, Open Approach, Diagnostic (ICD-10-PCS; 2017-12-23)
PROC: 0T9B70Z Drainage of Bladder with Drainage Device, Via Natural or Artificial Opening (ICD-10-PCS; 2017-12-27)
PROC: 30233N1 Transfusion of Nonautologous Red Blood Cells into Peripheral Vein, Percutaneous Approach (ICD-10-PCS; 2017-12-28)
PROC: 0DBN0ZZ Excision of Sigmoid Colon, Open Approach (ICD-10-PCS; principal; 2018-01-02)
PROC: 0UT90ZZ Resection of Uterus, Open Approach (ICD-10-PCS; 2018-01-02)
PROC: 0UT20ZZ Resection of Bilateral Ovaries, Open Approach (ICD-10-PCS; 2018-01-02)
PROC: 0UT70ZZ Resection of Bilateral Fallopian Tubes, Open Approach (ICD-10-PCS; 2018-01-02)
PROC: 0DBB0ZZ Excision of Ileum, Open Approach (ICD-10-PCS; 2018-01-02)
PROC: 0WJJ4ZZ Inspection of Pelvic Cavity, Percutaneous Endoscopic Approach (ICD-10-PCS; 2018-01-02)
PROC: 0DBW0ZZ Excision of Peritoneum, Open Approach (ICD-10-PCS; 2018-01-02)
PROC: 8E0W0CZ Robotic Assisted Procedure of Trunk Region, Open Approach (ICD-10-PCS; 2018-01-02)
PROC: 02HV33Z Insertion of Infusion Device into Superior Vena Cava, Percutaneous Approach (ICD-10-PCS; 2018-01-02)
PROC: B5181ZA Fluoroscopy of Superior Vena Cava using Low Osmolar Contrast, Guidance (ICD-10-PCS; 2018-01-02)
PROC: B548ZZA Ultrasonography of Superior Vena Cava, Guidance (ICD-10-PCS; 2018-01-02)
DX: C49.A4 Gastrointestinal stromal tumor of large intestine (principal); E46 Unspecified protein-calorie malnutrition; K56.7 Ileus, unspecified; Z68.1 Body mass index [BMI] 19.9 or less, adult; C49.A3 Gastrointestinal stromal tumor of small intestine; D64.9 Anemia, unspecified; H10.9 Unspecified conjunctivitis; Z53.31 Laparoscopic surgical procedure converted to open procedure; Z80.0 Family history of malignant neoplasm of digestive organs; Z80.3 Family history of malignant neoplasm of breast; Z82.49 Family history of ischemic heart disease and other diseases of the circulatory system; Z83.3 Family history of diabetes mellitus; Z87.891 Personal history of nicotine dependence; G89.18 Other acute postprocedural pain
CPT/HCPCS: 36415; 74018; 77001; J3475; J3490; 36569; 74177; 76937; 80048; 80053; 81001; 81025; 82962; 83735; 84100; 84134; 84478; 85025; 85610; 85730; 86304; 86850; 86900; 86923; 87086; 88305; 88307; 88331; 88341; 88342; C1729; G0378; J0171; J0610; J0690; J1100; J1170; J1644; J1815; J1885; J2175; J2250; J2270; J2405; J2704; J2710; J3010; J3480; Q9967; C1751; J0330; J0735; J1720; J2370; J2765; J3420; J7030; J7040; J7120; P9016